=== PATIENT | female | born 1985 | race American Indian/Alaskan Native ===

== ENCOUNTER 2019-05-20 10:53 | Emergency (ER) | payer MEDICAID ==
[2019-05-20 11:00] VITALS: BP 125/66
--- NOTE | 2019-05-20 13:30 | Emergency Department Report ---
ED Extremity Problem HPI - General Chief complaint: Extremity Problem,Nontraumatic Stated complaint: SWOLLEN/PAINFUL FINGER Time Seen by Provider: 05/20/19 12:51 Source: patient Mode of arrival: Ambulatory Limitations: No Limitations - History of Present Illness Initial comments: 34-year-old female complaining of right middle finger pain and swelling. Denies any trauma. She was seen at urgent care on . Started on Bactrim and ibuprofen. Patient reports no improvement increasing pain and swelling or right distal middle finger. She has been compliant with Bactrim DS one tablet twice a day MD Complaint: extremity pain, extremity swelling Location: right, other (middle finger) Quality: other (throbbing ) Consistency: constant Improves with: nothing Worsens with: palpation Associated Symptoms: denies other symptoms - Related Data Allergies Allergy/AdvReac Type Severity Reaction Status Date / Time No Known Allergies Allergy Unverified 02/25/19 13:36 ED Review of Systems ROS: Stated complaint: SWOLLEN/PAINFUL FINGER Other details as noted in HPI Comment: All other systems reviewed and negative Musculoskeletal: other (right distal middle finger pain and swelling) Skin: denies: change in hair/nails Neurological: denies: headache, weakness ED Past Medical Hx - Past Medical History Previous Medical History?: No - Surgical History Past Surgical History?: No - Social History Smoking Status: Never Smoker Substance Use Type: None ED Physical Exam - General Limitations: No Limitations General appearance: alert, in no apparent distress - Head Head exam: Present: atraumatic - Eye Eye exam: Present: normal appearance - ENT ENT exam: Present: normal exam - Neck Neck exam: Present: normal inspection - Respiratory Respiratory exam: Present: normal lung sounds bilaterally - Cardiovascular Cardiovascular Exam: Present: regular rate, normal heart sounds - Extremities Exam Extremities exam: Present: other (right distal middle finger swollen full rom. Pain worsens with palpation. sensation intact. 2+ radial pulse) - Neurological Exam Neurological exam: Present: alert, oriented X3 - Skin Skin exam: Present: warm, dry, intact, normal color ED Course Vital Signs 05/20/19 10:58 Temperature 98.2 F Pulse Rate 100 H Respiratory 18 Rate Blood Pressure 125/66 O2 Sat by Pulse 98 Oximetry - I & D Right Finger Type of Procedure: Simple Site: right middle finger raise the cuticle with 11 blade large pus expressed. Blade Size: 11 I & D Procedure: betadine prep Progress: Prior to procedure right middle finger soaked in 1/2 betadine 1/2 saline solution for 10 minutes. Used 11 blade to left cuticle of right middle finger. Large amount of pus expressed. Pt tolerated well. Clean dressing applied Critical care attestation.: If time is entered above; I have spent that time in minutes in the direct care of this critically ill patient, excluding procedure time. ED Disposition Clinical Impression: Paronychia Disposition: - TO HOME OR SELFCARE Is pt being admited?: No Does the pt Need Aspirin: No Condition: Stable Instructions: Paronychia (ED) Additional Instructions: Continue with Bactrim antibiotic as prescribed until finish. Take Ibuprofen as prescribed for pain. Do warm soapy water soaks twice a day for next 3-5 days. Follow up with your PCP or [facility] in 3-5 days. Referrals: PRIMARY CARE, [Primary Care Provider] - 3-5 Days Time of Disposition: 13:38
== END 2019-05-20 14:00 | disposition home or self-care (01) ==
LOC: ED 10:53
DX: L03.011 Cellulitis of right finger (principal)

== ENCOUNTER 2019-12-24 13:46 | Emergency (ER) | payer MEDICAID, OTHER ==
--- NOTE | 2019-12-24 16:17 | Emergency Department Report ---
Blank Doc - Documentation Documentation: 34-year-old female that presents with cp and sOB. This initial assessment/diagnostic orders/clinical plan/treatment(s) is/are subject to change based on patient's health status, clinical progression and re- assessment by fellow clinical providers in the ED. Further treatment and workup at subsequent clinical providers discretion. Patient/guardians urged not to elope from the ED as their condition may be serious if not clinically assessed and managed. Initial orders include: 1- Patient sent to [facility] for further evaluation and treatment 2- cardiac work up
[2019-12-24 16:53] LABS: Basophils % (Auto) 0.4 % (0.0-1.8); Eosinophils # (Auto) 0.1 K/mm3 (0.0-0.4); Eosinophils % (Auto) 0.6 % (0.0-4.3); Hematocrit 36.9 % (30.3-42.9); Hemoglobin 11.8 gm/dl (10.1-14.3); Lymphocytes # (Auto) 3.1 K/mm3 (1.2-5.4); Lymphocytes % (Auto) 25.6 % (13.4-35.0); Mean Corpuscular HGB Conc 32 % (30-34); Mean Corpuscular Volume 81 fl (79-97); Monocytes # (Auto) 0.5 K/mm3 (0.0-0.8); Monocytes % (Auto) 4.1 % (0.0-7.3); Platelet Count 296 K/mm3 (140-440); Red Blood Count 4.54 M/mm3 (3.65-5.03); Red Cell Distribution Width 14.6 % (13.2-15.2)
[2019-12-24 17:22] LABS: Alanine Aminotransferase 10 units/L (7-56); BUN/Creatinine Ratio 16; Blood Urea Nitrogen 11 mg/dL (7-17); Hemolysis Index 4
[2019-12-24 18:05] LABS: INR 1.3 (0.87-1.13)
[2019-12-24 18:07] LABS: Partial Thromboplastin Time 30.8 Sec. (24.2-36.6)
--- NOTE | 2019-12-24 18:09 | XRay Report ---
CHEST 2 VIEWS INDICATION / CLINICAL INFORMATION: Chest Pain. COMPARISON: 2 views of the chest from 02/25/2019. FINDINGS: SUPPORT DEVICES: None. HEART / MEDIASTINUM: No significant abnormality. LUNGS / PLEURA: No significant pulmonary or pleural abnormality. No pneumothorax. ADDITIONAL FINDINGS: No significant additional findings. IMPRESSION: 1. No acute abnormality of the chest. Signer Name: Bret Ely MD Signed: 12/24/2019 6:05 PM Workstation Name: [id number]
--- NOTE | 2019-12-24 22:02 | Emergency Department Report ---
ED Chest Pain HPI - General Chief Complaint: Dyspnea/Respdistress Stated Complaint: CP/SOB/HEART MURMUR Time Seen by Provider: 12/24/19 16:16 Source: EMS Mode of arrival: Ambulatory Limitations: No Limitations - History of Present Illness Initial Comments: 34-year-old -[place] female with a past medical history of hypertension presents emergency department complaining of having continued episodes of chest pain off and on for the past week or so. States that she was initially taking Flagyl for bacterial vaginosis and thinks originally thought the symptoms were associated with starting the medication. Since that time she has discontinued t he medication but states the symptoms have continued. States she does want to be checked to make sure because the chest pain was sharp and moderate hit sometimes caused her to feel a little short of breath. She reports no presyncope, no blurred vision, no headache, no tinnitus Pain Radiation: none Severity: mild, moderate Consistency: constant Improves With: nothing Worsens With: nothing re: denies: nausea, vomting, diaphoresis, dyspnea, sense of impending doom Other Symptoms: denies: fever, acid taste in mouth, leg swelling Treatments Prior to Arrival: none - Related Data Allergies Allergy/AdvReac Type Severity Reaction Status Date / Time No Known Allergies Allergy Unverified 02/25/19 13:36 Heart Score - HEART Score History: Slightly suspicious EKG: Normal Age: < 45 Risk factors: 1-2 risk factors Troponin: < normal limit HEART Score: 1 ED Review of Systems ROS: Stated complaint: CP/SOB/HEART MURMUR Other details as noted in HPI Comment: All other systems reviewed and negative ED Past Medical Hx - Past Medical History Previous Medical History?: No - Surgical History Past Surgical History?: No - Social History Smoking Status: Unknown if ever smoked Substance Use Type: None ED Physical Exam - General Limitations: No Limitations General appearance: alert, in no apparent distress - Head Head exam: Present: atraumatic, normocephalic - Eye Eye exam: Present: normal appearance, PERRL, EOMI - ENT ENT exam: Present: mucous membranes moist - Neck Neck exam: Present: normal inspection - Respiratory Respiratory exam: Present: normal lung sounds bilaterally. Absent: respiratory distress - Cardiovascular Cardiovascular Exam: Present: regular rate, normal rhythm. Absent: systolic mu rmur, diastolic murmur, rubs, gallop - GI/Abdominal GI/Abdominal exam: Present: soft, normal bowel sounds - Extremities Exam Extremities exam: Present: normal inspection - Back Exam Back exam: Present: normal inspection - Neurological Exam Neurological exam: Present: alert, oriented X3 - Psychiatric Psychiatric exam: Present: normal affect, normal mood - Skin Skin exam: Present: warm, dry, intact, normal color. Absent: rash ANIL score - Anil Score Age > 65: (0) No Aspirin use within the Past 7 Days: (0) No 3 or more CAD Risk Factors: (0) No 2 or more Angina events in past 24 hrs: (0) No Known CAD with more than 50% Stenosis: (0) No Elevated Cardiac Markers: (0) No ST Deviation Greater than 0.5mm: (0) No ANIL Score: 0 ED Medical Decision Making - Lab Data Result diagrams: 12/24/19 16:41 12/24/19 16:41 Lab Results 12/24/19 12/24/19 12/24/19 Range/Units 16:41 16:41 16:41 WBC 11.9 H (4.5-11.0) K/mm3 RBC 4.54 (3.65-5.03) M/mm3 Hgb 11.8 (10.1-14.3) gm/dl Hct 36.9 (30.3-42.9) % MCV 81 (79-97) fl MCH 26 L (28-32) pg MCHC 32 (30-34) % RDW 14.6 (13.2-15.2) % Plt Count 296 (140-440) K/mm3 Lymph % (Auto) 25.6 (13.4-35.0) % Payette % (Auto) 4.1 (0.0-7.3) % Eos % (Auto) 0.6 (0.0-4.3) % Baso % (Auto) 0.4 (0.0-1.8) % Lymph # 3.1 (1.2-5.4) K/mm3 Payette # 0.5 (0.0-0.8) K/mm3 Eos # 0.1 (0.0-0.4) K/mm3 Baso # 0.0 (0.0-0.1) K/mm3 Seg Neutrophils % 69.3 (40.0-70.0) % Seg Neutrophils # 8.3 H (1.8-7.7) K/mm3 PT 16.4 H (12.2-14.9) Sec. INR 1.30 H (0.87-1.13) APTT 30.8 (24.2-36.6) Sec. Sodium 138 (137-145) mmol/L Potassium 3.9 (3.6-5.0) mmol/L Chloride 105.6 (98-107) mmol/L Carbon Dioxide 19 L (22-30) mmol/L Anion Gap 17 mmol/L BUN 11 (7-17) mg/dL Creatinine 0.7 (0.7-1.2) mg/dL Estimated GFR > 60 ml/min BUN/Creatinine Ratio 16 % Glucose 96 (65-100) mg/dL Calcium 9.0 (8.4-10.2) mg/dL Total Bilirubin < 0.20 (0.1-1.2) mg/dL AST 12 (5-40) units/L ALT 10 (7-56) units/L Alkaline Phosphatase 50 (35-129) units/L Troponin T < 0.010 (0.00-0.029) ng/mL Total Protein 7.8 (6.3-8.2) g/dL Albumin 4.0 (3.9-5) g/dL Albumin/Globulin Ratio 1.1 % HCG, Qual (Negative) 12/24/19 Range/Units 16:41 WBC (4.5-11.0) K/mm3 RBC (3.65-5.03) M/mm3 Hgb (10.1-14.3) gm/dl Hct (30.3-42.9) % MCV (79-97) fl MCH (28-32) pg MCHC (30-34) % RDW (13.2-15.2) % Plt Count (140-440) K/mm3 Lymph % (Auto) (13.4-35.0) % Payette % (Auto) (0.0-7.3) % Eos % (Auto) (0.0-4.3) % Baso % (Auto) (0.0-1.8) % Lymph # (1.2-5.4) K/mm3 Payette # (0.0-0.8) K/mm3 Eos # (0.0-0.4) K/mm3 Baso # (0.0-0.1) K/mm3 Seg Neutrophils % (40.0-70.0) % Seg Neutrophils # (1.8-7.7) K/mm3 PT (12.2-14.9) Sec. INR (0.87-1.13) APTT (24.2-36.6) Sec. Sodium (137-145) mmol/L Potassium (3.6-5.0) mmol/L Chloride (98-107) mmol/L Carbon Dioxide (22-30) mmol/L Anion Gap mmol/L BUN (7-17) mg/dL Creatinine (0.7-1.2) mg/dL Estimated GFR ml/min BUN/Creatinine Ratio % Glucose (65-100) mg/dL Calcium (8.4-10.2) mg/dL Total Bilirubin (0.1-1.2) mg/dL AST (5-40) units/L ALT (7-56) units/L Alkaline Phosphatase (35-129) units/L Troponin T (0.00-0.029) ng/mL Total Protein (6.3-8.2) g/dL Albumin (3.9-5) g/dL Albumin/Globulin Ratio % HCG, Qual Negative (Negative) - EKG Data EKG shows normal: sinus rhythm Rate: normal (78) - EKG Data Interpretation: normal EKG - Radiology Data Radiology results: report reviewed Print Report Referring Physician:FRITZ AGGARWALPatient Name:DIOGO DIALPatient ID:[id number] of :[id number]:FemaleAccession:[id number] Date:[id number] Status:Finalized Findings [facility] [address] [place] [address] XRay Report Signed Patient: DIOGO DIAL MR#: [id number] : 1985 Acct:[id number] Age/Sex: 34 / F ADM Date: 12/24/19 Loc: ED Attending Dr: Ordering Physician: FRITZ AGGARWAL NP Date of Service: 12/24/19 Procedure(s): XR chest routine 2V Accession Number(s): [id number] cc: FRITZ AGGARWAL NP Fluoro Time In Minutes: CHEST 2 VIEWS INDICATION / CLINICAL INFORMATION: Chest Pain. COMPARISON: 2 views of the chest from 02/25/2019. FINDINGS: SUPPORT DEVICES: None. HEART / MEDIASTINUM: No significant abnormality. LUNGS / PLEURA: No significant pulmonary or pleural abnormality. No pneumothorax. ADDITIONAL FINDINGS: No significant additional findings. IMPRESSION: 1. No acute abnormality of the chest. Signer Name: Bret Ely MD Signed: 12/24/2019 6:05 PM Workstation Name: [id number] Transcribed By: CHINMAY Dictated By: Bret Ely MD Electronically Authenticated By: Bret Ely MD Signed Date/Time: 12/24/191804 DD/ 04 TD/TT: - Medical Decision Making This patient presents with chest pain that is very unlikely angina or acute coronary syndrome. The emergency department evaluation has not identified any cause for suspicion that this chest pain has a cardiac etiology. Based on their history, EKG (which showed no evidence of ischemia or infarction) and imaging, in addition to the patient's physical exam, I see no evidence at this time for a malignant etiology for the patient's chest pain. There is no acute evidence for pulmonary embolus, acute myocardial infarction, pneumothorax, Boerhaeve syndrome, cardiac tamponade, thoracic artery dissection, or any other emergent cardiac, pulmonary or aortic pathology. Given the low pre-test probability for cardiac etiology of chest pain and the absence of any sign of ischemia or infarction, discharge for outpatient follow-up and further evaluation is reasonable. I have explained to the patient that even though a cardiac problem is very unlikely, follow-up and further testing is required to reduce further the already small uncertainty that exists. Other life-threatening diagnoses have been considered. The patient understands the need to return immediately if their symptoms worsen or they develop any new symptoms, and not to engage in any significant exertional activity until follow-up is obtained. Critical care attestation.: If time is entered above; I have spent that time in minutes in the direct care of this critically ill patient, excluding procedure time. ED Disposition Clinical Impression: Chest pain Disposition: -01 TO HOME OR SELFCARE Is pt being admited?: No Does the pt Need Aspirin: No Condition: Stable Instructions: Chest Pain (ED) Referrals: TRE URENA MD [Primary Care Provider] - 3-5 Days CRIS HATHAWAY MD [Staff Physician] - 3-5 Days
[2019-12-24 23:33] LABS: Bacteria,Urine 2+ /HPF (Negative); Bilirubin,Urine NEG (Negative); Blood,Urine NEG (Negative); Color,Urine Yellow (Yellow); Mucus,Urine 1+ /HPF; Protein,Urine <15 mg/dL mg/dL (Negative); Urobilinogen,Urine < 2.0 mg/dL (<2.0)
[2019-12-25 00:59] VITALS: BP 133/62
== END 2019-12-24 23:39 | disposition home or self-care (01) ==
LOC: ED 13:46
DX: R07.89 Other chest pain (principal)
CPT/HCPCS: 36415; 71046; 80053; 81001; 84484; 84703; 85025; 85610; 85730; 93005

== ENCOUNTER 2020-04-04 11:48 | Day surgery (SDC) | payer MEDICAID, OTHER ==
--- NOTE | 2020-04-04 12:23 | Anesthesia Day of Surgery ---
Anesthesia Day of Surgery - Day of Surgery Patient Examined: Yes Patient H&P Reviewed: Yes Patient is NPO: Yes
--- NOTE | 2020-04-04 12:24 | Anesthesia Consultation ---
Anesthesia Consult and Med Hx Date of service: 04/04/20 - Airway Anesthetic Teeth Evaluation: Good ROM Head & Neck: Adequate Mental/Hyoid Distance: Adequate Mallampati Class: Class II Intubation Access Assessment: Good - Pre-Operative Health Status ASA Pre-Surgery Classification: ASA2 Proposed Anesthetic Plan: MAC - Pulmonary Hx Respiratory Symptoms: No (+2FS) - Cardiovascular System Hx Hypertension: Yes - Gastrointestinal Hx Gastroesophageal Reflux Disease: Yes - Endocrine Hx Renal Disease: No Hx Liver Disease: No Hx Non-Insulin Dependent Diabetes: No Hx Thyroid Disease: No - Hematic Hx Sickle Cell Disease: No - Other Systems Hx Obesity: Yes
[2020-04-04] MEDS ORDERED: SODIUM CHLORIDE 0.9% 1000 ML 1,000 ML ONE (12:31)
[2020-04-04] MEDS ORDERED: SODIUM CHLORIDE 0.9% 1000 ML 1,000 ML IV SCH (12:45)
[2020-04-04] MEDS ORDERED: ONDANSETRON 4 MG/2 ML INJ ONE (13:11)
[2020-04-04] MEDS ORDERED: fentaNYL 100 MCG/2 ML INJ ONE (13:11)
[2020-04-04] MEDS ORDERED: propofoL 200 MG/20 ML VIAL IV ONE ×2 (13:15→13:27)
[2020-04-04] MEDS ORDERED: LIDOCAINE MPF (2%) 20 MG/1 ML VIAL 5 ML ONE (13:15)
--- NOTE | 2020-04-04 13:39 | Procedure Note ---
Date of procedure: 04/04/20 Pre-op diagnosis: Epigastric Pain Post-op diagnosis: other (Mild to moderate Erosive Esophagitis/ R/O Eosinophilic Esophagitis/ Gastritis/ R/O Celiac Disease) Procedure: EGD with Biopsy Anesthesia: MAC Surgeon: SAMUEL DICKEY Estimated blood loss: minimal Pathology: list Specimen disposition: to lab Condition: stable
--- NOTE | 2020-04-04 13:49 | Operative Report ---
PROCEDURE: Esophagogastroduodenoscopy with biopsy. INDICATIONS: This is a 35-year-old -[place] female who has been complaining of epigastric pain and discomfort. EGD was done to assess for the problem and to assess for any upper GI pathology. DESCRIPTION OF PROCEDURE: The procedure was done after getting informed consent with MAC anesthesia. Instrument was passed through the hypopharynx, which showed mild to moderate distal erosive esophagitis. Photodocumentation was obtained. Biopsy was obtained from the distal esophagus as well as the mid esophagus to assess for the severity of the erosive esophagitis and to rule out for any associated eosinophilic esophagitis. The stomach appeared normal in the straight and the retroverted view, other than for the presence of some antral gastritis. No peptic ulcer disease was noted in the gastric or the duodenal lumen. The pylorus was patent. The duodenum in the bulb showed some abnormal mucosa. Photodocumentation and biopsy was obtained. The second portion appeared normal. Additional biopsy was done from the gastric antrum, gastric body and angular incisura to rule out for H. pylori and atrophic gastritis. There was minimal bleeding associated with the biopsies and no complications associated with the procedure. ASSESSMENT: Epigastric pain, no peptic ulcer disease noted; mild to moderate erosive esophagitis, rule out eosinophilic esophagitis; gastritis, abnormal duodenal mucosa. PLAN: To treat the patient with high-dose PPI. Avoid aspirin and aspirin-related products for the next 5 days. Further treatment adjustment will be according to the biopsy findings. The patient will be asked to follow up in the office in 1-2 weeks' time. Procedure was done in the GI lab with the assistance of the GI lab team, which included Rina RAMEY with Leonel escamilla and with the assistance of anesthesia. JOB# [id number] JACOBY/CARL
[2020-04-04] MEDS ORDERED: WATER FOR IRRIG STERILE 250 ML BOTTLE IR ONE (14:04)
[2020-04-04 14:23] VITALS: BP 114/67
--- NOTE | 2020-04-04 17:19 | Post Anesthesia Evaluation ---
- Post Anesthesia Evaluation Patient Participated: Yes Airway Patent: Yes Stable Respiratory Function: Yes Nausea/Vomiting: No Temp > 96.8F: Yes Pain Manageable: Yes Adequeate Hydration: Yes Anesthesia Complications: No Block Receding Appropriately: Not Applicable Patient on Ventilator: No
== END 2020-04-04 11:49 | disposition home or self-care (01) ==
LOC: GIO 11:48
DX: R10.13 Epigastric pain (principal); K31.89 Other diseases of stomach and duodenum; K29.70 Gastritis, unspecified, without bleeding; I10 Essential (primary) hypertension; K21.00 Gastro-esophageal reflux disease with esophagitis, without bleeding; E66.9 Obesity, unspecified; Z98.890 Other specified postprocedural states; Z68.31 Body mass index [BMI] 31.0-31.9, adult; Z79.899 Other long term (current) drug therapy
CPT/HCPCS: 43239; 88305; 88342; J2405; J2704; J3010; J7030

== ENCOUNTER 2021-01-26 08:22 | Outpatient (CLI) | payer OTHER ==
--- NOTE | 2021-01-26 09:50 | Fluoroscopy Report ---
BARIUM SWALLOW Indication: ABDOMINAL / CHEST PAIN. Technique: Single and double contrast barium technique utilized to evaluate the esophagus. FINDINGS: To begin the exam, swallowing was evaluated in the lateral position under direct fluorosco py. Swallowing was normal. No mucosal irregularity, mass, mass effect, or critical stenosis. There were no abnormal tertiary c ontractions as seen with dysmotility. No gastroesophageal reflux. IMPRESSION: Unremarkable exam. Fluoroscopic time: 0.9 minutes Number of fluoroscopic images: 16 Signer Name: Yoel Garcia Jr, MD Signed: 01/26/2021 9:45 AM Workstation Name: [id number]
== END 2021-01-26 08:23 | disposition home or self-care (01) ==
LOC: FLUORO 08:22
PROVIDERS: ATTEND Surgery
DX: R10.9 Unspecified abdominal pain (principal); R07.9 Chest pain, unspecified
CPT/HCPCS: 74220